=== PATIENT | female | born 1955 | race Caucasian/White ===

== ENCOUNTER 2025-06-21 11:08 | Emergency (ER) | payer MEDICARE, MEDICAID ==
[~2025-06-21] VITALS: Ht 162.6 cm; Wt 60.0 kg
[2025-06-21 11:28] VITALS: O2SAT 100
[2025-06-21 12:14] LABS: CREATININE 0.6 mg/dL (0.6-1.0); TROPONIN I HIGH SENSITIVITY < 4 ng/L (3.0-34)
[2025-06-21 12:15] LABS: UREA NITROGEN BLOOD 11 mg/dL (9-23)
[2025-06-21 12:16] LABS: ASPARTATE AMINOTRANSFERASE 67 IU/L (<34); BILIRUBIN DIRECT 0.4 mg/dL (<=3.0)
[2025-06-21 12:17] LABS: BILIRUBIN TOTAL 1.5 mg/dL (0.1-1.0); PROTEIN TOTAL 6.3 g/dL (6.0-8.3)
[2025-06-21] MEDS: ACETAMINOPHEN 325MG TABLET PO ONE (12:42)
[2025-06-21] MEDS: ONDANSETRON HCL 4MG/2ML INJ IV ONE (12:58)
[2025-06-21 13:29] VITALS: BP 141/74; PULSE 98; RESP 18; TEMP 36.7; O2SAT 99
[2025-06-21] MEDS: IBUPROFEN 600MG TABLET PO ONE (13:29)
[2025-06-21 13:30] LABS: HEMATOCRIT. 31.6 % (36.0-48.0); HEMOGLOBIN. 10.6 g/dL (12.0-16.0); MEAN PLATELET VOLUME 7.9 fl (7.4-10.4); PLATELET 249 x1000/uL (130-400); RED BLOOD CELL COUNT 3.15 mill/uL (4.2-5.4); RED CELL DISTRIBUTION WIDTH 17.3 % (11.6-14.6)
[2025-06-21 13:57] LABS: BAND% 13.0 % (1.0-6.0); LYMPHOCYTES % MANUAL 12.0 % (20.0-60.0); MONOCYTES % MANUAL 11.0 % (2.0-8.0); NEUTROPHILS % MANUAL 64.0 % (45.0-75.0); PLATELET ESTIMATE NORMAL
[2025-06-21 14:15] LABS: TROPONIN I HIGH SENSITIVITY < 4 ng/L (3.0-34)
[2025-06-23] MEDS ORDERED: TRAZ-251 PO (17:59)
[2025-06-23] MEDS ORDERED: FLUO-335 PO (17:59)
[2025-06-23] MEDS ORDERED: METH-773 PO (17:59)
[2025-06-23] MEDS ORDERED: IBUP-2029 PO (17:59)
== END 2025-06-21 13:45 | disposition home or self-care (01) ==
LOC: ER 11:08
DX: S06.0XAA Concussion with loss of consciousness status unknown, initial encounter (principal); Z79.899 Other long term (current) drug therapy; W18.30XA Fall on same level, unspecified, initial encounter; Y93.89 Activity, other specified; Y92.89 Other specified places as the place of occurrence of the external cause; Y99.8 Other external cause status
CPT/HCPCS: 99285; 96374; 70450; 80076; 80048; 83690; 83735; 85025; 84484; 36415; J2405; A4606